=== PATIENT | male | born 1945 | race Caucasian/White ===

== ENCOUNTER → 2017-05-21 | Outpatient (CLI) | payer OTHER ==
[~2017-05-21] MED LIST: ASPI81TA28 PO; ATOR-22; ATOR-26 PO; CHLOTAB77 PO; CMD4; EZET10TA63; LISI-789 PO; METO1TAB69 PO; METO25TA3; MULTIVIT PO; WARF4TAB8 PO
--- NOTE | 2017-05-21 15:04 | DIAGNOSTIC IMAGING REPORT ---
CT OF THE LUMBAR SPINE WITHOUT CONTRAST CT DOSE: 625.94 mGy.cm CLINICAL HISTORY: Lumbar spine stenosis. Lower back pain radiating into left lower extremity. TECHNIQUE: Axial images of the lumbar spine were obtained without IV contrast. Sagittal and coronal reconstructions were viewed. COMPARISON STUDY: None. FINDINGS: For purposes of numbering on this exam, the L5-S1 disc space is assigned to axial image 289 of 356. Alignment of lumbar spine is anatomic. Several Schmorl's nodes are present. There is no acute lumbar spine fracture or suspicious lesion. Paravertebral soft tissues are unremarkable. A 1.5 cm lesion arising from the lower pole the right kidney is suboptimally assessed on this unenhanced exam but likely reflects a cyst as it measures water attenuation. Disc spaces are preserved. There is mild endplate osteophytosis and mild facet arthrosis of the lumbar spine. Central canal and neural foramen are suboptimally assessed by CT technique. However, there is no evidence of significant central canal stenosis. There is a most mild multilevel facet arthrosis. IMPRESSION: 1. No acute lumbar spine fracture or subluxation. 2. Mild multilevel degenerative disc disease and facet arthrosis of the lumbar spine. Suboptimal evaluation of the central canal and neural foramen given CT technique but no significant central canal stenosis. Suspected mild multilevel neural foraminal stenosis. Electronically signed by: Travis Escobedo M.D. 05/21/2017 3:02 PM Dictated Date/Time: 05/21/2017 1:07 PM
== END | disposition home or self-care (01) ==
LOC: C.CTS 12:48
PROVIDERS: ATTEND Orthopaedic Surgery Orthopaedic Surgery of the Spine
DX: M48.06 Spinal stenosis, lumbar region (principal)

== ENCOUNTER → 2017-06-02 | Day surgery (SDC) | payer OTHER ==
[2017-05-28 08:52] VITALS: Ht 157.5 cm; Wt 75.0 kg
[~2017-06-02] VITALS: Ht 157.5 cm; Wt 75.0 kg
[~2017-06-02] MED LIST changes: -ATOR-22; +DEXAMETHASONE SOD INJ 4 MG/ML VIAL ONE; -EZET10TA63; +LIDOCAINE HCL 1% MPF 5 ML VIAL ONE; -METO25TA3
--- NOTE | 2017-06-02 07:01 | History & Physical Bridge - SC ---
H&P Re-Evaluation Bridge Note: I have examined the patient, reviewed the History & Physical and in the interval since the performance of the History & Physical I have noted the following changes of clinical significance: No changes noted
--- NOTE | 2017-06-02 07:08 | History & Physical Bridge Note ---
H&P Re-Evaluation Bridge Note: I have examined the patient, reviewed the History & Physical and in the interval since the performance of the History & Physical I have noted the following changes of clinical significance: No changes noted; Left sided
[2017-06-02 07:22] VITALS: TEMP 36.5
--- NOTE | 2017-06-02 07:26 | [facility] Operative Report ---
Operative Report Operative Date Jun 02, 2017. Pre-Operative Diagnosis spinal stenosis Post-Operative Diagnosis spinal stenosis Procedure(s) Performed epidural steroid injection l5-s1 left Surgeon Dr. Tyler Muñoz Findings Spinal stenosis L5-S1 Complication(s) None Disposition Recovery Room / PACU Indications Spinal stenosis lumbar spine Description of Procedure Patient taken to the minor procedure room here at [facility] surgical raven. Patient placed prone scrubbed prepped draped sterile. Was able to advance the 22-gauge spinal needle to the epidural space at L5-S1 I used a volume acceptance technique. 2 mL of dexamethasone injected to the epidural area favoring the left hand side without incident. There were no complications 0 blood loss patient returned to recovery room satisfactory and stable thank you I attest to the content of the Intraoperative Record and any orders documented therein. Any exceptions are noted below.
--- NOTE | 2017-06-02 07:28 | Discharge Instructions-SurgCtr ---
Discharge Instructions Date of Service Jun 02, 2017. Visit Reason for Visit: Spinal Stenosis Lumbar Discharge Discharge Diagnosis / Problem: same Discharge Goals Goal(s): Improve function Activity Recommendations Activity Limitations: resume your previous activity Lifting Limitations: no more than 10 pounds Anesthesia . Post Anesthesia Instructions: If you have had General Anesthesia or IV Sedation: * Do not drive today. * Resume driving when surgeon permits. * Do not make important decisions or sign legal documents today. * Call surgeon for: 1. Temperature elevations greater than 101 degrees F. 2. Uncontrollable pain. 3. Excessive bleeding. 4. Persistent nausea and vomiting. 5. Medication intolerance (nausea, vomiting or rash). * For nausea and vomiting use only clear liquids such as: tea, soda, bouillon until nausea subsides, then gradually increase diet as tolerated. * If you have any concerns or questions, call your surgeon's office. If physician is unavailable and it is an emergency, call 911 or go to the nearest emergency room. . Instructions / Follow-Up Instructions / Follow-Up Home today take it easy today and resume normal activity as original medications today. Patient to have a follow-up appointment approximate 7-14 days. Thank you Diet Recommendations Home Diet: no limitations Procedures Procedures Performed: epidural steroid injection l5-s1 left Pending Studies Studies pending at discharge: no Medical Emergencies . Who to Call and When: Medical Emergencies: If at any time you feel your situation is an emergency, please call 911 immediately. . Non-Emergent Contact Non-Emergency issues call your: Surgeon . . "Provider Documentation" section prepared by Tyler Muñoz. .
[2017-06-02 07:40] VITALS: BP 102/68; PULSE 61; O2SAT 94
== END | disposition home or self-care (01) ==
LOC: X.SURG 06:03
PROVIDERS: ATTEND Orthopaedic Surgery Orthopaedic Surgery of the Spine
DX: M48.07 Spinal stenosis, lumbosacral region (principal); I10 Essential (primary) hypertension; E78.00 Pure hypercholesterolemia, unspecified; Z95.810 Presence of automatic (implantable) cardiac defibrillator

== ENCOUNTER → 2017-08-12 | Outpatient (CLI) | payer OTHER ==
[~2017-08-12] MED LIST changes: -DEXAMETHASONE SOD INJ 4 MG/ML VIAL ONE; -LIDOCAINE HCL 1% MPF 5 ML VIAL ONE
[2017-08-12 06:47] LABS: PROTHROMBIN TIME (PATIENT) 10.6 SECONDS (9.0-12.0)
--- NOTE | 2017-08-16 14:53 | CODING QUERY NO DIAGNOSIS ---
: 1945 DOS: 08/12/17 TREATMENT RENDERED WITHOUT A DIAGNOSIS To promote full compliance with coding requirements relating to patient care, physician participation is requested in all cases of remote coders uncertainty. Please assist us with providing a diagnosis/symptom for the test(s) below: A diagnosis/symptom was not documented on your Order. A valid diagnosis/symptom is required to bill all insurances. Please remember that we are unable to code a diagnosis of rule out, probable, possible, questionable, or suspected. Tests that require a diagnosis: * PROTHROMBIN TIME PROFILE DIAGNOSIS: Provider Signature: Date: Thank you Dominique Etienne Right Rele[employer] Information Management Once completed, please kindly fax back to [phone] For questions please call [phone]
== END | disposition home or self-care (01) ==
LOC: C.LAB 06:02
PROVIDERS: ATTEND Anesthesiology
DX: Z01.812 Encounter for preprocedural laboratory examination (principal); Z51.81 Encounter for therapeutic drug level monitoring; Z79.899 Other long term (current) drug therapy; I25.10 Atherosclerotic heart disease of native coronary artery without angina pectoris; Z79.82 Long term (current) use of aspirin; M54.5 Low back pain; M51.86 Other intervertebral disc disorders, lumbar region; Z86.73 Personal history of transient ischemic attack (TIA), and cerebral infarction without residual deficits; M46.1 Sacroiliitis, not elsewhere classified; M48.06 Spinal stenosis, lumbar region

== ENCOUNTER → 2017-08-24 | Day surgery (SDC) | payer OTHER ==
[~2017-08-24] VITALS: Ht 157.5 cm; Wt 75.0 kg
[~2017-08-24] MED LIST changes: +ALBUT/IPRATROP 3MG/0.5MG NEB 3 ML VIAL INH STA; -CMD4; +EpHEDrine SULFATE INJ 50 MG/ML AMP ONE; +LIDOCAINE HCL 2% 2 ML VIAL (20MG/ML) ONE; -MULTIVIT PO; +PHENYLEPHRINE 100MCG/ML 5ML SYR ONE; +PROPOFOL IV EMULSION 10 MG/ML 20 ML VIAL IV ONE; +SODIUM CHLORIDE 0.9% 500ML 500 ML IV ONE
[2017-08-24 08:48] VITALS: Ht 157.5 cm; Wt 75.0 kg
--- NOTE | 2017-08-24 08:56 | Endo History and Physical ---
History & Physical Date of Service: Aug 24, 2017. Chief Complaint: h/o polyps Referring Physician: History of Present Illness h/o polyps Past Medical History High Cholesterol, Heart Disease, CVA/TIA Past Surgical History Hx Cardiac Surgery: Yes (CABG X4 VESSELS WITH VALVE REPLACEMENT, HEART CATHS NO STENTS) Hx Internal Defibrillator: Yes () Hx Pacemaker: Yes () Hx Abdominal Surgery: No Hx of Implantable Prosthesis: No Hx Post-Op Nausea and Vomiting: No Hx Cancer Surgery: No Hx Thoracic Surgery: No Hx Orthopedic: Yes (HX BACK INJECTIONS, LT HAND SURGERY S/P TRAUMA) Hx Urinary Tract Surgery: No Family History None Social History Smoking Status: Current Every Day Smoker Hx Substance Use: No Hx Alcohol Use: Yes (2 DRINKS/WEEK) Allergies Coded Allergies: No Known Allergies (Verified , 08/18/17) Current Medications Reported Home Medications Medications Dose Route/Sig Max Daily Dose Days Date Category Dose Instructions Coricidin D Cold/Flu/Sinu (Chlorpheniramine-Phenylephrine) 1 Tab Tab 1 Tab PO UD PRN 08/18/17 Reported Zestril (Lisinopril) 2.5 Mg Tab 1 Tab PO DAILY 08/18/17 Reported PT UNSURE IF TAKES AM OR PM Jantoven (Warfarin Sodium) 4 Mg Tab 4 Mg PO QPM 08/18/17 Reported Aspirin Ec (Aspirin) 81 Mg Tab 81 Mg PO QPM 08/18/17 Reported Toprol-Xl (Metoprolol Succinate) 100 Mg Tabcr 100 Mg PO QAM 05/28/17 Reported Lipitor (Atorvastatin Calcium) 80 Mg Tab 80 Mg PO QAM 05/28/17 Reported Aspirin Ec (Aspirin) 81 Mg Tab 81 Mg PO DAILY 08/20/15 Reported Vital Signs Weight (Kilograms): 75.00 Height (Feet): 5 Height (Inches): 2 Date Time Temp Pulse Resp B/P (MAP) Pulse Ox O2 Delivery O2 Flow Rate FiO2 08/24/17 08:52 36.1 66 18 126/79 (95) 98 Room Air Physical Exam General Appearance: WD/WN, no apparent distress Assessment and Plan colonoscopy today
[2017-08-24 09:17] VITALS: PULSE 61; O2SAT 96
--- NOTE | 2017-08-24 09:47 | GI REPORT ---
Procedure Date: 08/24/2017 9:25 AM Procedure: Colonoscopy Indications: Surveillance: Personal history of adenomatous polyps on last colonoscopy > 5 years ago Medicines: Propofol per Anesthesia Complications: No immediate complications. Estimated blood loss: Minimal. Estimated Blood Loss: Estimated blood loss was minimal. Procedure: Pre-Anesthesia Assessment: - Prior to the procedure, a History and Physical was performed, and patient medications, allergies and sensitivities were reviewed. The patient's tolerance of previous anesthesia was reviewed. - The risks and benefits of the procedure and the sedation options and risks were discussed with the patient. All questions were answered and informed consent was obtained. - Patient identification and proposed procedure were verified prior to the procedure by the physician and the nurse. The procedure was verified in the pre-procedure area in the procedure room. - Mental Status Examination: alert and oriented. Airway Examination: normal oropharyngeal airway and neck mobility. Respiratory Examination: clear to auscultation. CV Examination: normal. Abdominal Examination: bowel sounds present, abdomen soft and non-tender, no masses or organomegaly noted. - ASA Grade Assessment: III - A patient with severe systemic disease. After I obtained informed consent, the scope was passed under direct vision. Throughout the procedure, the patient's blood pressure, pulse, and oxygen saturations were monitored continuously. The On-site loaner was introduced through the anus and advanced to the terminal ileum. The colonoscopy was performed without difficulty. The patient tolerated the procedure well. The quality of the bowel preparation was good. Findings: The perianal and digital rectal examinations were normal. Pertinent negatives include normal sphincter tone and no palpable rectal lesions. The terminal ileum appeared normal. A 4 mm polyp was found in the sigmoid colon. The polyp was sessile. The polyp was removed with a cold snare. Resection and retrieval were complete. Verification of patient identification for the specimen was done by the physician and nurse using the patient's name and date. Estimated blood loss was minimal. The retroflexed view of the distal rectum and anal verge was normal and showed no anal or rectal abnormalities. Impression: - The examined portion of the ileum was normal. - One 4 mm polyp in the sigmoid colon, removed with a cold snare. Resected and retrieved. - The distal rectum and anal verge are normal on retroflexion view. Recommendation: - Await pathology results. - Repeat colonoscopy in 5 years for surveillance. - Return to referring physician as previously scheduled. - Discharge patient to home. Dania Downing D.O. Dania Downing DO 08/24/2017 9:46:53 AM This report has been signed electronically. Note Initiated On: 08/24/2017 9:25 AM I attest to the content of the Intraoperative Record and orders documented therein, exceptions below
--- NOTE | 2017-08-24 09:56 | Discharge Instructions ---
Endoscopy Patient Instructions Date / Procedure(s) Performed Aug 24, 2017. Colonoscopy Allergy Information Coded Allergies: No Known Allergies (Verified , 08/18/17) Discharge Date / Findings Aug 24, 2017. small polyp Medication Instructions Restart Stopped Medication(s): Ok to resume all home medications as above Provider Instructions Activity Restrictions - No exercising or heavy lifting for 24 hours. - Do not drink alcohol the day of the procedure. - Do not drive a car or operate machinery until the day after the procedure. - Do not make any important decisions or sign important papers in 24 hours after the procedure. Following Day: - Return to full activity which may include returning to work/school. Diet Start your diet with liquids and light foods (jello, soup, juice, toast). Then eat your usual diet if not nauseated. Treatment For Common After Affects For mild abdominal pain, bloating, or excessive gas: - Rest - Eat lightly - Lie on right side Follow-Up Information Follow-up with DR. PATRICIA NIXON as scheduled Anesthesia Information What You Should Know You have had a procedure that required some medicine to reduce anxiety and discomfort. This treatment is called moderate sedation. After receiving the treatment, you may be sleepy, but you will be able to breathe on your own. The effects of the treatment may last for several hours. Follow these instructions along with Activity/Diet recommendations noted above: * Do NOT do anything where dizziness or clumsiness would be dangerous. * Rest quietly at home today, then you can be up and about tomorrow. * Have a responsible person stay with you the rest of today. * You may have had an I.V. today. If so, you may take the dressing off later today. Recommendations Call your doctor if: * Trouble breathing * Continuous vomiting for more than 24 hours * Temperature above 101 degrees * Severe abdominal pain or bloating * Pain not relieved by pain medicine ordered * There is increased drainage or redness from any incision * A large amount of rectal bleeding greater than 2-3 tablespoons. (If you had a polyp/s removed or have hemorrhoids, a small amount of blood - from the rectum is to be expected.) * You have any unanswered questions or concerns. IN THE EVENT OF A SERIOUS EMERGENCY, GO TO THE NEAREST EMERGENCY ROOM Your discharge instructions were prepared by provider Dania Downing. Patient Instructions Signature Page Antoine Nolasco Patient (or Guardian) Signature/Date: I have read and understand the instructions given to me by my caregivers. Caregiver/RN/Doctor Signature/Date: The above-named patient and/or guardian has received patient instructions on this date. + Original Patient Signature Page (only) stays with chart. Please make copy for patient.
--- NOTE | 2017-08-24 10:12 | Anesthesiology Progress Note ---
Anesthesia Post Op Note Date & Time Aug 24, 2017 at 10:11 Vital Signs Pain Intensity: 0 Vital Signs Past 12 Hours Date Time Temp Pulse Resp B/P (MAP) Pulse Ox O2 Delivery O2 Flow Rate FiO2 08/24/17 10:04 69 18 118/79 (92) 96 Room Air 08/24/17 09:49 36.4 63 18 115/71 (86) 98 Mask 4 08/24/17 09:17 61 16 96 Room Air 08/24/17 08:52 36.1 66 18 126/79 (95) 98 Room Air Notes Mental Status: alert / awake / arousable, participated in evaluation Pt Amnestic to Procedure: Yes Nausea / Vomiting: adequately controlled Pain: adequately controlled Airway Patency, RR, SpO2: stable & adequate BP & HR: stable & adequate Hydration State: stable & adequate Anesthetic Complications: no major complications apparent Pt awake, doing well, VSS. Advised pt and about smoking cessation and seeking care for his chronic respiratory issues.
[2017-08-24 10:19] VITALS: BP 135/76; PULSE 66; O2SAT 97
== END | disposition home or self-care (01) ==
LOC: C.GI 08:27
PROVIDERS: ATTEND Internal Medicine
DX: Z12.11 Encounter for screening for malignant neoplasm of colon (principal); D12.5 Benign neoplasm of sigmoid colon; Z86.010 Personal history of colon polyps; E78.00 Pure hypercholesterolemia, unspecified; Z86.73 Personal history of transient ischemic attack (TIA), and cerebral infarction without residual deficits; F17.200 Nicotine dependence, unspecified, uncomplicated; Z79.82 Long term (current) use of aspirin; I25.2 Old myocardial infarction; I10 Essential (primary) hypertension; E78.5 Hyperlipidemia, unspecified; Z95.0 Presence of cardiac pacemaker; Z85.820 Personal history of malignant melanoma of skin

== ENCOUNTER → 2017-08-25 | Outpatient (CLI) | payer OTHER ==
[~2017-08-25] MED LIST changes: -ALBUT/IPRATROP 3MG/0.5MG NEB 3 ML VIAL INH STA; -EpHEDrine SULFATE INJ 50 MG/ML AMP ONE; -LIDOCAINE HCL 2% 2 ML VIAL (20MG/ML) ONE; -PHENYLEPHRINE 100MCG/ML 5ML SYR ONE; -PROPOFOL IV EMULSION 10 MG/ML 20 ML VIAL IV ONE; -SODIUM CHLORIDE 0.9% 500ML 500 ML IV ONE
--- NOTE | 2017-08-25 10:01 | DIAGNOSTIC IMAGING REPORT ---
LEG LENGTH STUDY (WHOLE LEG) CLINICAL HISTORY: Leg length discrepancy. COMPARISON STUDY: No previous studies for comparison. FINDINGS: Right femur measures 45.3 cm and left femur measures 44.4 cm. The right tibia measures 35.6 cm and the left measures 35.8 cm. IMPRESSION: Right femur length of 45.3 cm and right tibia length of 35.6 cm for a total right leg length of 80.9 cm. Left femur length of 44.4 cm and left tibia length of 35.8 cm for a total left leg length of 80.2 cm. Electronically signed by: Travis Escobedo M.D. 08/25/2017 10:00 AM Dictated Date/Time: 08/25/2017 9:55 AM
== END | disposition home or self-care (01) ==
LOC: C.RADBC 09:06
PROVIDERS: ATTEND Physician Assistant
DX: M21.752 Unequal limb length (acquired), left femur (principal); M21.761 Unequal limb length (acquired), right tibia

== ENCOUNTER → 2017-10-25 | Outpatient (CLI) | payer OTHER ==
[~2017-10-25] MED LIST changes: +METO100T44 PO; -METO1TAB69 PO
[2017-10-25 07:08] LABS: PROTHROMBIN TIME (PATIENT) 10.4 SECONDS (9.0-12.0)
== END | disposition home or self-care (01) ==
LOC: C.LAB 06:40
PROVIDERS: ATTEND Physician Assistant
DX: Z01.818 Encounter for other preprocedural examination (principal)

== ENCOUNTER → 2017-11-09 | Outpatient (CLI) | payer OTHER | END | disposition home or self-care (01) | LOC: C.LAB 08:54 | PROVIDERS: ATTEND Physician Assistant | DX: Z01.812 Encounter for preprocedural laboratory examination (principal) ==

== ENCOUNTER 2017-12-08 13:10 | Emergency (ER) | payer OTHER ==
[~2017-12-08] VITALS: Ht 157.5 cm; Wt 75.0 kg
[2017-12-08 13:18] VITALS: TEMP 36.5; Ht 157.5 cm; Wt 75.0 kg
--- NOTE | 2017-12-08 14:11 | DIAGNOSTIC IMAGING REPORT ---
THORACIC SPINE 3 VIEWS ROUTINE CLINICAL HISTORY: Low back pain. Trauma. COMPARISON STUDY: 10/03/2014 FINDINGS: There are postsurgical changes of a midline sternotomy. There is a left subclavian pacer/defibrillator present. Since the prior study, the patient's T9 compression fracture has worsened now demonstrating 50% loss in height.. The bones appear osteopenic. IMPRESSION: Progressive T9 compression fracture which now demonstrates 50% loss in height Electronically signed by: Torey Jain M.D. 12/08/2017 2:10 PM Dictated Date/Time: 12/08/2017 2:08 PM
--- NOTE | 2017-12-08 14:24 | DIAGNOSTIC IMAGING REPORT ---
L RIBS UNILATERAL WITH PA CHEST HISTORY: 71 years-old Male same acute chest pain status post fall. COMPARISON: Chest radiographs 10/03/2014 TECHNIQUE: PA view of the chest with 4 views of the left ribs. FINDINGS: Prior median sternotomy. Single lead left pectoral pacer/AICD is noted. Atherosclerosis of the aorta. There is no pneumothorax, pleural effusion, focal airspace consolidation or overt pulmonary edema. Degenerative changes are seen within the shoulders. Mild cortical irregularity involves the lateral aspect of the left eighth, ninth and 10th ribs which appears new from prior study. No displaced rib fractures identified. IMPRESSION: 1. No acute cardiopulmonary process. 2. Mild cortical irregularity involving the posterior lateral aspects of the left eighth, ninth and 10th ribs suggest acute nondisplaced fractures. Correlate with point tenderness. The above report was generated using voice recognition software. It may contain grammatical, syntax or spelling errors. Electronically signed by: Otilio Wu M.D. 12/08/2017 2:22 PM Dictated Date/Time: 12/08/2017 2:08 PM
[2017-12-08] MEDS ORDERED: HYDR-5688 PO (14:37)
[2017-12-08 14:38] VITALS: BP 126/78; PULSE 66; O2SAT 96
--- NOTE | 2017-12-09 16:40 | EMERGENCY ROOM VISIT NOTE ---
ED Visit Note First contact with patient: 13:33 Chief Complaint: I fell yesterday and hurt my shoulder and ribs. History of Present Illness: Mr. Nolasco is a 71-year-old white male who ambulates into the ED complaining of midthoracic back pain in the area of T5-T7 and left lateral rib pain after a fall. Patient reports he was walking outside yesterday to bring the male in, slipped and fell on the ice onto his thoracic back and lateral ribs. He reports before the fall he was not experiencing any lightheaded or dizziness, the time of the fall he did not strike his head or have a loss of consciousness and since the all he denies any signs of head injury. Currently he is complaining of an achy pain in the mid thoracic spine area over the bony spinous processes of T5-T7. He rates this discomfort 1/10. His pain is nonradiating. His pain worsens with palpation. He has not identified any alleviating factors related to the pain. He has not taken any medication for pain prior to arrival at the hospital. Additionally he is complaining of lateral rib pain over the left ribs 6 through 10. He describes this more of a sharp sensation but continues to rate his discomfort 1/10. His pain worsens with palpation and deep inspiration. He has not identified any alleviating factors related to the pain. Once again he has not taken any medication for pain prior to arrival at the hospital. Associated with his pain he reports intermittently he has a cough which increases his pain but is nonproductive. He denies headache, dizziness, lightheadedness, abnormal neurological symptoms, neck pain, lower back pain, shortness of breath, cough, wheezing, abdominal pain , nausea, vomiting, upper and lower extremity pain, upper and lower extremity weakness/numbness/tingling. Review of Systems: As noted above in history of present illness. All body systems were reviewed and found to be negative as noted above. Past Medical History: Coronary artery disease, thoracic vertebral fracture, previous shoulder dislocation, status post CABG and pacemaker implantation. Current Medications: Medications Dose Route/Sig Max Daily Dose Days Date Category Dose Instructions Zestril (Lisinopril) 2.5 Mg Tab 1 Tab PO DAILY 08/18/17 Reported PT UNSURE IF TAKES AM OR PM Jantoven (Warfarin Sodium) 4 Mg Tab 4 Mg PO QPM 08/18/17 Reported Aspirin Ec (Aspirin) 81 Mg Tab 81 Mg PO QPM 08/18/17 Reported Toprol-Xl (Metoprolol Succinate) 100 Mg Tabcr 100 Mg PO QAM 05/28/17 Reported Lipitor (Atorvastatin Calcium) 80 Mg Tab 80 Mg PO QAM 05/28/17 Reported Allergies to Medications: Patient denies. Social History: Patient is currently retired; he feels safe in his home environment; he admits to tobacco and alcohol use. Physical Examination: Vital Signs: Date Time Temp Pulse Resp B/P (MAP) Pulse Ox O2 Delivery O2 Flow Rate FiO2 12/08/17 14:38 66 18 126/78 96 12/08/17 13:18 36.5 65 18 97/66 93 Room Air GENERAL: 71-year-old male in mild distress due to pain, nontoxic-appearing, afebrile and hemodynamically stable. NEUROLOGICAL: Awake, alert and oriented to person, place and time. Answering questions appropriately and following commands. Normal gait. Good hand eye coordination. Cranial nerves II through XII grossly intact. Romberg test negative. Pronator drift test negative. Good short-term and long-term recall. SKIN: Warm, dry and pink. No soft tissue trauma noted. HEENT: Atraumatic and normocephalic. Skull: No bony deformity, bony tenderness , swelling or ecchymosis. No raccoon's eyes or garvin signs. No drainage in the ears of the nostril; no hemotympanum. Face: No bony tenderness, swelling or ecchymosis. PERRLA. EOMI without nystagmus. No malocclusion. Airway patent. Speech is normal and clear. No intraoral trauma. Trachea midline. No jugular venous distention. BACK: No tenderness over the bony cervical and lumbar spine. Full range of motion of the cervical spine. Mild tenderness in the T5 through T7 area over the spinous processes. I do not appreciate any bony deformity, step-offs, swelling or ecchymosis. No tenderness throughout the paraspinous muscles. No CVA tenderness. THORAX: Lungs sounds are clear to auscultation and equal bilaterally with symmetrical chest wall. No wheezing, rales or rhonchi. Moderate tenderness throughout the lateral ribs on the left starting at rib 5 through 10. I do not appreciate any bony deformity, bony crepitus or subcutaneous air. There is no bruising or ecchymosis in this area. ABDOMEN: Flat, soft and nontender. Positive bowel sounds in all quadrants. No guarding, rigidity or organomegaly. EXTREMITIES: Moves all extremities well on command and with purpose. All distal neurovascular statuses are intact and equal bilaterally. ED Course: Patient is assessed as noted above. Patient medication list was reviewed. Patient was offered pain medication and refused. PA Chest with Rib Series: Were read by myself and the radiologist showing no acute infiltrates, effusions or pneumothorax. Normal heart silhouette and bony anatomy. There is a pacer/ACD noted in the chest. Radiologist also notes prior medial sternotomy, atherosclerosis of the aorta and degenerative changes of the shoulders. On his rib x-rays it is noted that there is cortical irregularities of the lateral aspect of the eighth, ninth and 10th rib suggestive of nondisplaced rib fractures. Thoracic Spine X-Rays: Was read by myself and the radiologist showing similar symptoms as those noted above and a T9 compression fracture that now demonstrates 50% loss in height which was slightly increased from his previous x -rays. Patient's case was reviewed with Dr. Linares; we agreed on diagnostic approach , treatment, disposition and plan. Patient was educated about today's findings and instructed on his treatment plan ; he verbalizes understanding and agreement with this plan. Clinical Impression: Fall. Left sided rib fractures. Worsening compression fracture of T9. Disposition: Patient discharged home in stable condition; prior to departure he was reassessed and subjectively reported that he was pain-free. Plan: Patient was placed on a sliding pain medication scale of acetaminophen and [place] ; he was given appropriate narcotic precautions and his name was checked on the state database and no red flags were noted. Additional comfort measures including ice and rest were discussed with the patient. Patient was issued an incentive spirometer and instructed on at use. Patient was encouraged to follow-up with his PCP for reevaluation in 3-4 days. Patient is encouraged return ED for worsening/uncontrolled pain, shortness of breath, coughing up blood, fevers or any new/concerning symptoms.
== END 2017-12-08 14:38 | disposition home or self-care (01) ==
LOC: C.EDB 13:11 → C.EDD 14:38
DX: S22.42XA Multiple fractures of ribs, left side, initial encounter for closed fracture (principal); S22.079A Unspecified fracture of T9-T10 vertebra, initial encounter for closed fracture; W00.0XXA Fall on same level due to ice and snow, initial encounter; Y93.89 Activity, other specified; Y99.8 Other external cause status; I25.10 Atherosclerotic heart disease of native coronary artery without angina pectoris; Z72.0 Tobacco use; Z95.1 Presence of aortocoronary bypass graft; Z95.0 Presence of cardiac pacemaker; Z79.01 Long term (current) use of anticoagulants; Z79.82 Long term (current) use of aspirin

== ENCOUNTER → 2018-03-07 | Outpatient (CLI) | payer OTHER ==
[~2018-03-07] MED LIST changes: -CHLOTAB77 PO; +HYDR-5688 PO
== END | disposition home or self-care (01) ==
LOC: C.LAB 07:59
PROVIDERS: ATTEND Anesthesiology
DX: Z98.61 Coronary angioplasty status (principal)

== ENCOUNTER → 2018-04-08 | Outpatient (CLI) | payer OTHER ==
--- NOTE | 2018-04-08 08:31 | DIAGNOSTIC IMAGING REPORT ---
LUMBAR SPINE WITHOUT HISTORY: 72 years-old Male SACROILIITIS, CHRONIC LUMBAGO chronic low back pain. Preoperative exam. COMPARISON: Lumbar spine CT 05/21/2017 TECHNIQUE: Multiple axial CT images of the lumbar spine were obtained without the use of IV or intrathecal contrast. Coronal and sagittal reformatted images were obtained from the axial data set and were submitted for review. A dose lowering technique was used consistent with the principals of ALA. FINDINGS: The bones appear mildly demineralized without acute fracture or subluxation identified. 10 degrees levoscoliosis measured from L1-L5. Mild degenerative changes about the SI joints. No sacral insufficiency fracture. Mild bilateral spondylitic spurring with mild intervertebral disc space narrowing at T12-L1 and L1-L2. Chondrocalcinosis about the disc spaces noted at several levels. There is moderate to severe left-sided facet arthrosis at L5-S1 with mild to moderate facet arthrosis seen at several levels. Central canal and neuroforamina are suboptimally assessed by CT. There is however a small circumferential annular disc bulge at L1-L2 which along with ligamentum flavum thickening appears to cause mild left-sided foraminal narrowing. There is flattening of the ventral thecal sac without significant central canal stenosis. No high-grade central canal or foraminal narrowing is seen at any level. Small posterior disc bulge at L5-S1 without significant central canal or foraminal narrowing. Moderate atherosclerosis of the aorta without aneurysm. No adenopathy. Low attenuating 1.5 cm exophytic lesion of the inferior pole right kidney suggests renal cyst. Soft tissues are unremarkable. IMPRESSION: 1. No acute fracture or subluxation. 2. 10 degrees levoscoliosis of the lumbar spine with severe left-sided facet arthrosis at L5-S1 and mild to moderate facet arthropathy seen at several levels. Mild spondylitic spurring with multilevel calcification of the annulus fibrosis. No significant central canal or foraminal narrowing identified. The above report was generated using voice recognition software. It may contain grammatical, syntax or spelling errors. Electronically signed by: Otilio Wu M.D. 04/08/2018 8:29 AM Dictated Date/Time: 04/08/2018 8:20 AM
== END | disposition home or self-care (01) ==
LOC: C.CTS 08:02
PROVIDERS: ATTEND Physician Assistant Medical
DX: M46.1 Sacroiliitis, not elsewhere classified (principal); M54.5 Low back pain

== ENCOUNTER 2023-03-03 07:45 | Inpatient (IN) ==
[2023-03-03] MEDS ORDERED: ASPIRIN CHEW 324 MG PO STA (07:52)
--- NOTE | 2023-03-03 07:56 | Emergency Department Note ---
Impression & Plan Chest pain, Abnormal EKG ED Provider Note NAME: SEAN TYLER AGE: 77 SEX: M : 1945 ARRIVES VIA: Walk-In INFORMANT: Patient, ED PROVIDER(S): Claudio Holder DO CHIEF COMPLAINT: Chest pain HPI: The patient is a 77-year-old male who presented to the emergency department for an evaluation of chest pain. The patient describes anterior and left-sided chest pain that began over the last 24 hours. He states he has had similar episodes over the last few days but it did not remain constant. This morning he decided to take his nitroglycerin. He has never had to take nitroglycerin before. He states that it did improve his pain somewhat. He is also noticed a cough as well as some difficulty breathing. He notices difficulty breathing with lying flat. He states he has a history of tobacco use. He also has a history of CABG. He states he had a stress test a few months ago that was "normal". He denies having any fever. He denies having any hemoptysis. He has had no black or bloody bowel movements. ROS: See above HPI for pertinent positives & negatives. A total of 10 systems reviewed and were otherwise negative. PAST MEDICAL HISTORY: See Below PAST SURGICAL HISTORY: See Below FAMILY HISTORY: See Below SOCIAL HISTORY: See Below HOME MEDICATIONS: See Below ALLERGIES: See Below VITALS: See Below PHYSICAL EXAMINATION: GENERAL: Patient is awake and alert. He does appear to be uncomfortable. EYES: The conjunctivae are clear. The pupils are round and reactive. EARS, NOSE, MOUTH AND THROAT: The nose is without any evidence of any deformity. Mucous membranes are moist. Tongue is midline. NECK: The neck is nontender and supple. RESPIRATORY: Diminished breath sounds are noted at both bases. There are rales at both bases. CARDIOVASCULAR: Regular rate and rhythm noted there no murmurs rubs or gallops normal S1 normal S2. GASTROINTESTINAL: The abdomen is soft. Abdomen is nontender. MUSCULOSKELETAL/EXTREMITIES: There is no evidence of gross deformity full range of motion is noted in the hips and shoulders. SKIN: Skin is warm and dry. There is no significant pedal edema. NEUROLOGIC: Patient is awake alert and oriented x3. MEDICAL DECISION MAKING: The patient is a 77-year-old male who presented to the emergency department for an evaluation of chest pain. The patient does have a history of coronary artery disease. His most recent stress test did reveal some abnormalities that could represent ischemic heart disease. The patient took nitroglycerin this morning. This is the first time he has taken nitroglycerin. The patient states he did have some improvement of his symptoms after these medications. I discussed the patient's laboratory and radiographic studies with him. I discussed the limitations of the emergency department work-up for chest pain with him. Given the patient's previous history as well as findings today I discussed his condition with the on-call [facility] supervisor sewer system. They have agreed to evaluate the patient in the emergency department. I also discussed this case with the on-call [facility] hospitalist. They have agreed to evaluate the patient in the emergency department for further management and disposition. Triage Nursing notes reviewed. Prior medical records reviewed Vital Signs: reviewed and remarkable for no significant abnormalities Differential diagnosis: Cardiac ischemia, aortic dissection, pulmonary embolism, pneumothorax, pneumonia, pericarditis, myocarditis, esophageal rupture, GERD, cholecystitis, pancreatitis, musculoskeletal, as well as other pathologies. ER treatment provided: See below Diagnostics interpreted by me: ECG: EKG was obtained in the emergency department. My interpretation is sinus bradycardia at 59 bpm. There were no PVCs noted. Poor R wave progression was noted. High lateral ST depressions with T wave inversions were noted. There were inferior Q waves. This was compared to a tracing from August 03, 2022. The lateral ST depressions appeared increased compared to today's tracing. Cardiac Monitoring: An order was placed for continuous cardiac monitoring. The monitor shows a rate of 54 bpm with sinus bradycardia. Laboratory studies: As stated above and show below. Imaging studies: See below. Radiographic imaging was reviewed by myself Consultation(s): I discussed this case with Dr. Stafford who is on-call for cardiology. I discussed this case with Beckie who is on-call for the [facility] hospitalist group. Past Med/Surg History Medical History Amputation of middle finger ASCVD (arteriosclerotic cardiovascular disease) Bicuspid aortic valve CVA (cerebral vascular accident) GERD (gastroesophageal reflux disease) Heart attack High cholesterol Left knee pain Mitral regurgitation Surgical History History of tonsillectomy S/P CABG x 5 S/P fusion of sacroiliac joint S/P TAVR (transcatheter aortic valve replacement) Social History Smoking Status: Current every day smoker Hx Alcohol Use: No Hx Substance Use: No Preferred Language: Slovak Communication Ability: Effective Visual Impairment: No Limitations Hearing Ability: Normal 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 Beliefs That Will Affect Care: None marital status: Current Living Situation: Spouse current occupational status: retired Allergies Allergies Allergy/AdvReac Type Severity Reaction Status Date / Time No Known Allergies Allergy Verified 02/23/22 11:01 Home Meds Home Medications Medication Instructions Recorded Confirmed aspirin 81 mg tablet,delayed 81 mg PO PM 02/23/22 03/03/23 release lisinopril 2.5 mg tablet 2.5 mg PO DAILY 02/23/22 03/03/23 metoprolol succinate 50 mg 50 mg PO DAILY 02/23/22 03/03/23 tablet,extended release 24 hr (Toprol XL) nitroglycerin 0.4 mg sublingual 0.4 mg sublingual Q5M PRN Chest 02/23/22 03/03/23 tablet Pain warfarin 4 mg tablet 4 mg PO 3XWK 02/23/22 03/03/23 amiodarone 200 mg tablet 200 mg PO DAILY 03/03/23 03/03/23 atorvastatin 40 mg tablet 40 mg PO DAILY 03/03/23 03/03/23 warfarin 4 mg tablet 2 mg PO 4XWK 03/03/23 03/03/23 Results & Data (ED) Vital Signs Vital Signs - 24 hr 03/03/23 07:45 03/03/23 07:45 03/03/23 07:50 Temperature 36.6 C Temperature Source Oral Pulse Rate 60 57 L Pulse Rate from SpO2 Sensor Respiratory Rate 16 16 22 Blood Pressure 147/69 H Blood Pressure [Left Arm] 155/85 H Blood Pressure Mean 95 Blood Pressure Mean [Left Arm] 108 Pulse Oximetry 96 94 Oxygen Delivery Method Room Air Sepsis Recent Fever Within 48 Hours No Sepsis New/Unexplained Change in Mental Status N/A Sepsis Action Taken by Nursing No Action Required 03/03/23 07:50 03/03/23 08:01 03/03/23 08:03 Temperature Temperature Source Pulse Rate 57 L 57 L 57 L Pulse Rate from SpO2 Sensor Respiratory Rate 22 22 Blood Pressure Blood Pressure [Left Arm] Blood Pressure Mean Blood Pressure Mean [Left Arm] Pulse Oximetry 94 94 Oxygen Delivery Method Room Air Room Air Sepsis Recent Fever Within 48 Hours Sepsis New/Unexplained Change in Mental Status Sepsis Action Taken by Nursing 03/03/23 07:58 03/03/23 08:00 03/03/23 08:00 Temperature Temperature Source Pulse Rate 57 L 57 L Pulse Rate from SpO2 Sensor 57 L 57 L Respiratory Rate 17 17 Blood Pressure 147/69 H Blood Pressure [Left Arm] Blood Pressure Mean 95 Blood Pressure Mean [Left Arm] Pulse Oximetry 94 94 Oxygen Delivery Method Sepsis Recent Fever Within 48 Hours Sepsis New/Unexplained Change in Mental Status Sepsis Action Taken by Nursing 03/03/23 08:30 03/03/23 08:30 03/03/23 09:00 Temperature Temperature Source Pulse Rate 54 L 54 L Pulse Rate from SpO2 Sensor 54 L 54 L Respiratory Rate 16 20 Blood Pressure 126/68 Blood Pressure [Left Arm] Blood Pressure Mean 87 Blood Pressure Mean [Left Arm] Pulse Oximetry 93 93 Oxygen Delivery Method Sepsis Recent Fever Within 48 Hours Sepsis New/Unexplained Change in Mental Status Sepsis Action Taken by Nursing 03/03/23 09:01 03/03/23 09:01 Temperature Temperature Source Pulse Rate Pulse Rate from SpO2 Sensor 55 L Respiratory Rate 19 Blood Pressure 140/65 Blood Pressure [Left Arm] Blood Pressure Mean 90 Blood Pressure Mean [Left Arm] Pulse Oximetry 92 Oxygen Delivery Method Sepsis Recent Fever Within 48 Hours Sepsis New/Unexplained Change in Mental Status Sepsis Action Taken by Correction Medications Current Medication List: was personally reviewed by me Laboratory Data Attestation: I reviewed the patient's lab results. 03/03/23 07:58 03/03/23 07:58 Lab Results 03/03/23 03/03/23 03/03/23 Range/Units 07:58 07:58 07:58 WBC 9.76 (4.8-10.8) K/ul RBC 5.40 (4.70-6.10) M/uL Hgb 16.9 (14.0-18.0) g/dl Hct 49.3 (42.0-52.0) % MCV 91.3 (80.0-100.0) fL MCH 31.3 (25.0-34.0) pg MCHC 34.3 (32.0-36.0) g/dL RDW Std Deviation 50.9 H (36.4-46.3) fL RDW Coeff of Nick 15.3 H (11.5-14.5) % Plt Count 225 (130-400) K/uL MPV 11.0 (9.4-12.4) fL Immature Gran % (Auto) 0.8 % Neut % (Auto) 59.6 % Lymph % (Auto) 21.4 % Mills % (Auto) 13.1 % Eos % (Auto) 4.0 % Baso % (Auto) 1.1 % Neut # (Auto) 5.81 (1.40-6.50) K/uL Lymph # (Auto) 2.09 (1.2-3.4) K/uL Mills # (Auto) 1.28 H (0.11-0.59) K/uL Eos # (Auto) 0.39 (0-0.50) K/uL Baso # (Auto) 0.11 (0-0.2) K/uL Immature Gran # (Auto) 0.08 (0.01-0.20) K/uL PT 26.1 H (9.0-12.0) Seconds INR 2.6 H (0.9-1.1) APTT 39.6 H (21.0-31.0) Seconds PTT Ratio 1.4 Sodium 140 (136-145) mmol/L Potassium 4.0 (3.5-5.1) mmol/L Chloride 105 (98-107) mmol/L Carbon Dioxide 29 (21-32) mmol/L Anion Gap 6 (3-11) BUN 12 (6-23) mg/dl Creatinine 0.89 (0.6-1.4) mg/dl Est Cr Clr Drug Dosing 62.3 ml/min Est GFR ( Amer) 96.3 ml/min Est GFR (Non-Af Amer) 83.1 ml/min BUN/Creatinine Ratio 13.5 (10-20) Glucose 83 (70-99(Fasting)) mg/dl Calcium 9.1 (8.6-10.3) mg/dl Total Bilirubin 0.5 (0.2-1.0) mg/dl AST 31 (13-39) U/L ALT 42 (7-52) U/L Alkaline Phosphatase 101 (34-104) U/L Troponin I High Sens 9.1 (0-20) pg/ml B-Natriuretic Peptide (0-100) pg/ml Total Protein 7.2 (6.0-8.3) gm/dl Albumin 4.4 (3.4-5.0) gm/dl Globulin 2.8 (2.5-4.0) gm/dl Albumin/Globulin Ratio 1.6 (0.9-2) Lipase 31 (11-82) U/L SARS-CoV-2, RNA, NAAT (NEGATIVE) 03/03/23 03/03/23 Range/Units 07:58 07:58 WBC (4.8-10.8) K/ul RBC (4.70-6.10) M/uL Hgb (14.0-18.0) g/dl Hct (42.0-52.0) % MCV (80.0-100.0) fL MCH (25.0-34.0) pg MCHC (32.0-36.0) g/dL RDW Std Deviation (36.4-46.3) fL RDW Coeff of Nick (11.5-14.5) % Plt Count (130-400) K/uL MPV (9.4-12.4) fL Immature Gran % (Auto) % Neut % (Auto) % Lymph % (Auto) % Mills % (Auto) % Eos % (Auto) % Baso % (Auto) % Neut # (Auto) (1.40-6.50) K/uL Lymph # (Auto) (1.2-3.4) K/uL Mills # (Auto) (0.11-0.59) K/uL Eos # (Auto) (0-0.50) K/uL Baso # (Auto) (0-0.2) K/uL Immature Gran # (Auto) (0.01-0.20) K/uL PT (9.0-12.0) Seconds INR (0.9-1.1) APTT (21.0-31.0) Seconds PTT Ratio Sodium (136-145) mmol/L Potassium (3.5-5.1) mmol/L Chloride (98-107) mmol/L Carbon Dioxide (21-32) mmol/L Anion Gap (3-11) BUN (6-23) mg/dl Creatinine (0.6-1.4) mg/dl Est Cr Clr Drug Dosing ml/min Est GFR ( Amer) ml/min Est GFR (Non-Af Amer) ml/min BUN/Creatinine Ratio (10-20) Glucose (70-99(Fasting)) mg/dl Calcium (8.6-10.3) mg/dl Total Bilirubin (0.2-1.0) mg/dl AST (13-39) U/L ALT (7-52) U/L Alkaline Phosphatase (34-104) U/L Troponin I High Sens (0-20) pg/ml B-Natriuretic Peptide 120 H (0-100) pg/ml Total Protein (6.0-8.3) gm/dl Albumin (3.4-5.0) gm/dl Globulin (2.5-4.0) gm/dl Albumin/Globulin Ratio (0.9-2) Lipase (11-82) U/L SARS-CoV-2, RNA, NAAT NEGATIVE (NEGATIVE) Administered Medications Discontinued Medications Aspirin (Aspirin Chew 324 Mg) 324 mg PO NOW STA Stop: 03/03/23 07:53 Last Admin: 03/03/23 08:09 Dose: 324 mg Documented By: DEE Imaging Data Attestation: I personally reviewed and interpreted this imaging study as follows: My Impression: 1 view chest x-rays obtained in the emergency department. My interpretation is cardiomegaly, final report below. Radiologist's Impression: Chest X-Ray 03/03/23 07:52 XR chest 1V portable HISTORY: 77 years-old Male Chest pain, nonspecific acute left-sided chest pain COMPARISON: 12/08/2017 TECHNIQUE: AP view of the chest FINDINGS: Cardiac silhouette is enlarged. Prior median sternotomy with left subclavian pacer/AICD. Cardiac valvular prosthesis. Mild chronic interstitial coarsening of the lung bases. No pneumothorax, pleural effusion, airspace consolidation or pulmonary edema. Degenerative changes of the shoulders and spine. Chronic lateral left rib fractures. IMPRESSION: Cardiomegaly without acute process. ACT 112: Negative or not required by law. The above report was generated using voice recognition software. It may contain grammatical, syntax or spelling errors. Electronically signed by: Andrew Wu M.D. 03/03/2023 8:22 AM Discharge Plan Visit Data Chief Complaint: Chest Pain Stated Complaint: CHEST PAIN ED Provider: Claudio Holder Discharge Problem: Chest pain, Abnormal EKG Patient Disposition: Being Evaluated by Hospitalist Forms Stand Alone Forms: My [facility] Prescriptions Prescriptions: No Action aspirin 81 mg tablet,delayed release (DR/EC) 81 mg PO PM lisinopril 2.5 mg tablet 2.5 mg PO DAILY metoprolol succinate [Toprol XL] 50 mg tablet extended release 24 hr 50 mg PO DAILY warfarin 4 mg tablet 4 mg PO 3XWK Rx Instructions: Take 1 tablet (4 mg) by mouth every Wednesday, Wednesday, and Wednesday. Take (1/2 tab) 2 mg all other days; Wednesday, , Wednesday, and Wednesday. nitroglycerin 0.4 mg tablet, sublingual 0.4 mg sublingual Q5M PRN (Reason: Chest Pain) Rx Instructions: do not exceed 3 doses per episode atorvastatin 40 mg tablet 40 mg PO DAILY amiodarone 200 mg tablet 200 mg PO DAILY warfarin 4 mg tablet 2 mg PO 4XWK Rx Instructions: Take (1/2 tab) 2 mg four times weekly on Wednesday, , Wednesday, and Wednesday. (Take 1 tablet (4 mg) by mouth alll other days;Wednesday, Wednesday, and Wednesday.) Referrals Referrals: Manuel Pearson MD [Outside Practitioners] -
--- NOTE | 2023-03-03 08:23 | XRay Report ---
XR chest 1V portable HISTORY: 77 years-old Male Chest pain, nonspecific acute left-sided chest pain COMPARISON: 12/08/2017 TECHNIQUE: AP view of the chest FINDINGS: Cardiac silhouette is enlarged. Prior median sternotomy with left subclavian pacer/AICD. Cardiac valv ular prosthesis. Mild chronic interstitial coarsening of the lung bases. No pneumothorax, pleural eff usion, airspace consolidation or pulmonary edema. Degenerative changes of the shoulders and spine. Ch ronic lateral left rib fractures. IMPRESSION: Cardiomegaly without acute process. ACT 112: Negative or not required by law. The above report was generated using voice recognition software. It may contain grammatical, syntax o r spelling errors. Electronically signed by: Andrew Wu M.D. 03/03/2023 8:22 AM
[2023-03-03 08:32] LABS: Basophils # (auto) 0.11 K/uL (0-0.2); Basophils % (auto) 1.1 %; Eosinophils # (auto) 0.39 K/uL (0-0.50); Hematocrit (blood only) 49.3 % (42.0-52.0); Hemoglobin 16.9 g/dl (14.0-18.0); Immature Granulocytes # (auto) 0.08 K/uL (0.01-0.20); Immature Granulocytes % (auto) 0.8 %; Lymphocytes # (auto) 2.09 K/uL (1.2-3.4); Lymphocytes % (auto) 21.4 %; Mean Corpuscular Hemoglobin 31.3 pg (25.0-34.0); Mean Corpuscular Hgb Conc 34.3 g/dL (32.0-36.0); Mean Corpuscular Volume 91.3 fL (80.0-100.0); Monocytes # (auto) 1.28 K/uL (0.11-0.59); Monocytes % (auto) 13.1 %; Neutrophils # (auto) 5.81 K/uL (1.40-6.50); Neutrophils % (auto) 59.6 %; Platelet Count 225 K/uL (130-400); RDW Coefficient of Variation 15.3 % (11.5-14.5); RDW Standard Deviation 50.9 fL (36.4-46.3); White Blood Count 9.76 K/ul (4.8-10.8)
[2023-03-03 09:00] LABS: INR 2.6 (0.9-1.1); Partial Thromboplastin Ratio 1.4; Partial Thromboplastin Time 39.6 Seconds (21.0-31.0); Prothrombin Time 26.1 Seconds (9.0-12.0)
[2023-03-03 09:08] LABS: Albumin Globulin Ratio 1.6 (0.9-2); Albumin Level 4.4 gm/dl (3.4-5.0); BUN Creatinine Ratio 13.5 (10-20); Bilirubin,Total 0.5 mg/dl (0.2-1.0); Calcium 9.1 mg/dl (8.6-10.3); Creatinine Clr Calc Pharmacy 62.3 ml/min; Est GFR (African American) 96.3 ml/min; Est GFR (Non-African American) 83.1 ml/min; Globulin 2.8 gm/dl (2.5-4.0); Total Protein 7.2 gm/dl (6.0-8.3)
[2023-03-03 09:24] LABS: Troponin I High Sensitivity 9.1 pg/ml (0-20)
[2023-03-03] MEDS ORDERED: ACETAMINOPHEN 500 MG TAB PO STA (09:37)
--- NOTE | 2023-03-03 09:46 | History & Physical Report ---
Date of Service March 03, 2023 Assessment & Plan (1) Chest pain: Plan: - Admit to tele - Trend cardiac biomarkers, initial set was negative at 9 - EKG reviewed as above - Check 2 D echo - pt last echo reviewed from Jul 2022 showing LVEF of 35 % an apical, septal, inferior, posterior, and lateral wall motion abnormality with hypokinesis to akinesis of the the segments. - Cardiology consulted - Dr. Stafford discussed the care with me - will plan to use tylenol and lidocaine as this sounds like musculoskeletal pain versus cardiac, although due to his hisotory will require overnight stay - PT/OT consulted - Fall precautions (2) S/P CABG x 5: (3) ASCVD (arteriosclerotic cardiovascular disease): (4) S/P TAVR (transcatheter aortic valve replacement): Plan: - Continue medications per home med rec including amiodarone, aspirin, atorvastatin, lisionpril and metoprolol succinate - Trend INR, 2.6 today, continue coumadin alternating doses of 2 and 4 mg. - Follows with Dr. Arango as an outpatient with cards - Does not appear to be volume overloaded - Cessation of cigarette use encouraged however pt denies nicotine patch DVT ppx: - teds, scds CODE: DNR/DNI Dispo: From home, likely to remain in the hospital x 1-2 days A total of 75 minutes were spent with greater than 50% of that time face to face with the patient, personally reviewing all current laboratories, imaging luana dies, past medication reconciliation, outpatient chart review, and discussion with specialists to collaborate care for the patient with attending. Please see attending documentation for corrections and/or additions. History of Present Illness Chief Complaint: Chest pain Primary Care Provider: Coco Garcia DO This is a 77 yo M with PMHx of chronic systolic CHF, aortocoronary bypass x 5, ischemic cardiomyopathy, s/p ICD implantation in Aug 2006, CAD, use of anticoagulant therapy, HLD, nonrheumatic aortic valve stenosis and bicuspid aortic valve s/p TAVR 2018, hemiparesis of left nondominant side as late effect of cerebral infarctions, tobacco use disorder, GERD, nocturnal hypoxemia previously prescribed supplemental O2. Last Echo was reviewed in outpatient EPIC from Jul 2022 showing LVEF of 35 % an apical, septal, inferior, posterior, and lateral wall motion abnormality with hypokinesis to akinesis of the the segments. He reports that over the weekend on Wednesday he was spraying fruit trees, trying to get rid of gypsy moth egg nests, for which she participate in this a few hours in the afternoon. He is left-handed so was reaching above his head pointing a sprayer nozzle. Later that evening he felt increasing soreness and had some left-sided chest pain which seem to improve with resting and laying down. He denies any specific shortness of breath, nausea, palpitations or lightheadedness. Throughout the past 3 days he has intermittently felt the similar pain especially with moving his left arm. His left the house overnight yesterday, so was not home when he developed worsening chest pain this morning after eating breakfast and having a cigarette. He reports that he was sitting at rest and thought that his chest pain was significant enough that he trialed 1 nitro tablet, but cannot confirm that this resolved/improved his pain. He took all of his morning medications today. EMS administered him 4 baby aspirin's. Patient smokes 10 to 14 cigarettes/day for his entire adult life, reports oc casional alcohol use, 2 beers every 6 weeks. Allergies Allergy/AdvReac Type Severity Reaction Status Date / Time No Known Allergies Allergy Verified 02/23/22 11:01 Home Medications Medication Instructions Recorded Confirmed Type aspirin 81 mg tablet,delayed 81 mg PO PM 02/23/22 03/03/23 History release lisinopril 2.5 mg tablet 2.5 mg PO DAILY 02/23/22 03/03/23 History metoprolol succinate 50 mg 50 mg PO DAILY 02/23/22 03/03/23 History tablet,extended release 24 hr (Toprol XL) nitroglycerin 0.4 mg sublingual 0.4 mg sublingual Q5M PRN Chest 02/23/22 03/03/23 History tablet Pain warfarin 4 mg tablet 4 mg PO 3XWK 02/23/22 03/03/23 History amiodarone 200 mg tablet 200 mg PO DAILY 03/03/23 03/03/23 History atorvastatin 40 mg tablet 40 mg PO DAILY 03/03/23 03/03/23 History warfarin 4 mg tablet 2 mg PO 4XWK 03/03/23 03/03/23 History Past Med/Surg History Medical History Amputation of middle finger ASCVD (arteriosclerotic cardiovascular disease) Bicuspid aortic valve CVA (cerebral vascular accident) GERD (gastroesophageal reflux disease) Heart attack High cholesterol Left knee pain Mitral regurgitation Surgical History History of tonsillectomy S/P CABG x 5 S/P fusion of sacroiliac joint S/P TAVR (transcatheter aortic valve replacement) Family History Other Diabetes Social History Smoking Status: Current every day smoker Cigarettes Per Day: 3/4 pack a day; Second Hand Exposure: No; Do You Dip or Chew Tobacco: No; Tobacco Cessation Education Requested by Patient: No Hx Alcohol Use: Yes Alcohol type: beer Hx Substance Use: No Preferred Language: Tongan Communication Ability: Effective Visual Impairment: No Limitations Hearing Ability: Normal Strike Planning Applications Required: No Beliefs That Will Affect Care: None marital status: Current Living Situation: Spouse current occupational status: retired Other Information That Helps Us Care for You: No Feels Safe at Home: Yes Safety Concerns: Feels Safe At This Time Assistive Devices: Denture - Upper, Denture - Lower and Glasses Review of Systems Review of Systems: Constitutional: No fever, sweats or chills Eyes: No diplopia, no worsening or blurred vision ENT: normal hearing, no trouble swallowing Respiratory: No cough, sputum, dyspnea at rest or on exertion Cardiovascular: As per HPI, currently No chest pain, tightness or palpitations Abdomen: No pain, nausea, vomiting, diarrhea or constipation Musculoskeletal: + tenderness with movement of the left arm above the shoulder and with palpation of the left pectoralis muscle, otherwise No joint pain, calf pain, swelling Neurologic: No weakness, numbness/tingling, or balance problems. Previous CVA in 2003 caused Left sided hemiplegia which he does still struggle with. Denies using ambulatory device for ambulation, has fallen but not recently. Psychiatric: No anxiety or depression Skin: No rash or itch Physical Exam Physical Exam: General: awake, alert, no apparent distress, + appears chronically ill Head: Normocephalic, atraumatic ENT: PERRL, EOMI, no pharyngeal exudate, mucous membranes moist Chest: + Expiratory wheeze throughout, no crackles, on room air with sats at 92%, no other adventitious breath sounds. Musculoskeletal: Pain with raising the left arm above head, external rotation of the left arm, point tenderness over left chest wall at the level of the fourth rib Cardiac: ICD in left chest wall, regular rate and rhythm, + TAVR, no JVD, normal peripheral pulses, good capillary refill, + appears euvolemic Abdominal: NABS x 4 quadrants, soft, nondistended, nontender to palpation, no rebound or guarding Extremities: Normal inspection, no peripheral edema or erythema, calfs nontender to palpation Psych: Normal mood and affect Neuro: AAO x 3, strength intact bilaterally and rated 5/5, no motor deficits, speech is clear, no peripheral sensory deficits Results & Data Results & Data Vital Signs (Past 12 Hours) Vital Signs Temp Pulse Resp BP BP Pulse Ox O2 Del Method 03/03/23 09:01 140/65 03/03/23 09:01 19 92 03/03/23 09:00 54 L 20 93 03/03/23 08:30 54 L 16 93 03/03/23 08:30 126/68 03/03/23 08:00 57 L 17 94 03/03/23 08:00 147/69 H 03/03/23 07:58 57 L 17 94 03/03/23 08:03 57 L 03/03/23 08:01 57 L 22 94 Room Air 03/03/23 07:50 57 L 22 94 Room Air 03/03/23 07:50 57 L 22 147/69 H 94 Room Air 03/03/23 07:45 16 155/85 H 03/03/23 07:45 36.6 C 60 16 96 Laboratory Results 03/03/23 03/03/23 03/03/23 07:58 07:58 07:58 WBC RBC Hgb Hct MCV MCH MCHC RDW Std Deviation RDW Coeff of Nick Plt Count MPV Immature Gran % (Auto) Neut % (Auto) Lymph % (Auto) [place] % (Auto) Eos % (Auto) Baso % (Auto) Neut # (Auto) Lymph # (Auto) [place] # (Auto) Eos # (Auto) Baso # (Auto) Immature Gran # (Auto) PT INR APTT PTT Ratio Sodium 140 Potassium 4.0 Chloride 105 Carbon Dioxide 29 Anion Gap 6 BUN 12 Creatinine 0.89 Est Cr Clr Drug Dosing 62.3 Est GFR ( Amer) 96.3 Est GFR (Non-Af Amer) 83.1 BUN/Creatinine Ratio 13.5 Glucose 83 Calcium 9.1 Total Bilirubin 0.5 AST 31 ALT 42 Alkaline Phosphatase 101 Troponin I High Sens 9.1 B-Natriuretic Peptide 120 H Total Protein 7.2 Albumin 4.4 Globulin 2.8 Albumin/Globulin Ratio 1.6 Lipase 31 SARS-CoV-2, RNA, NAAT NEGATIVE 03/03/23 03/03/23 07:58 07:58 WBC 9.76 RBC 5.40 Hgb 16.9 Hct 49.3 MCV 91.3 MCH 31.3 MCHC 34.3 RDW Std Deviation 50.9 H RDW Coeff of Nick 15.3 H Plt Count 225 MPV 11.0 Immature Gran % (Auto) 0.8 Neut % (Auto) 59.6 Lymph % (Auto) 21.4 [place] % (Auto) 13.1 Eos % (Auto) 4.0 Baso % (Auto) 1.1 Neut # (Auto) 5.81 Lymph # (Auto) 2.09 [place] # (Auto) 1.28 H Eos # (Auto) 0.39 Baso # (Auto) 0.11 Immature Gran # (Auto) 0.08 PT 26.1 H INR 2.6 H APTT 39.6 H PTT Ratio 1.4 Sodium Potassium Chloride Carbon Dioxide Anion Gap BUN Creatinine Est Cr Clr Drug Dosing Est GFR ( Amer) Est GFR (Non-Af Amer) BUN/Creatinine Ratio Glucose Calcium Total Bilirubin AST ALT Alkaline Phosphatase Troponin I High Sens B-Natriuretic Peptide Total Protein Albumin Globulin Albumin/Globulin Ratio Lipase SARS-CoV-2, RNA, NAAT Diagnostic Findings Chest X-Ray 03/03/23 07:52 XR chest 1V portable HISTORY: 77 years-old Male Chest pain, nonspecific acute left-sided chest pain COMPARISON: 12/08/2017 TECHNIQUE: AP view of the chest FINDINGS: Cardiac silhouette is enlarged. Prior median sternotomy with left subclavian pacer/AICD. Cardiac valvular prosthesis. Mild chronic interstitial coarsening of the lung bases. No pneumothorax, pleural effusion, airspace consolidation or pulmonary edema. Degenerative changes of the shoulders and spine. Chronic late ral left rib fractures. IMPRESSION: Cardiomegaly without acute process. ACT 112: Negative or not required by law. The above report was generated using voice recognition software. It may contain grammatical, syntax or spelling errors. Electronically signed by: Andrew Wu M.D. 03/03/2023 8:22 AM ECG Additional Comments: 03-MAR-2023 07:50:08 [facility]-EDSTAT ROUTINE RETRIEVAL Sinus bradycardia Non-specific intra-ventricular conduction block Inferior infarct , age undetermined T wave abnormality, consider lateral ischemia Abnormal ECG No previous ECGs available 25mm/[id number] 241CID: [id number] by: REFERRED SELF Unconfirmed Vent. rate 59 BPM MD interval 170 ms QRS duration 136 ms QT/QTc 450/445 ms Code Status & VTE Plan Code Status DNR/DNI-discussed with the patient at bedside Supervising Physician Co-Signing Physician Notes Patient was seen and examined independently. Chart reviewed. Case discussed with YASIR. Agree with assessment and plan as outlined above (1) Chest pain Chest pain type: unspecified Qualified Code(s): R07.9 - Chest pain, unspecified
[2023-03-03] MEDS ORDERED: ONDANSETRON INJ 2 MG/ML 2 ML VIAL IV PRN (11:52)
--- NOTE | 2023-03-03 13:16 | Cardiology Consultation ---
Date of Consultation March 03, 2023 Assessment & Plan (1) Chest pain: - Patient with a complex history of coronary heart disease, CABG that took place nearly 20 years ago. Most recent coronary angiography performed in part of work-up prior to TAVR in 2019 as noted. -There is definitely reproducible component of his chest discomfort suggesting that perhaps this is a presentation of acute musculoskeletal chest wall pain. Given his underlying cardiac risk factors however ongoing observation is recommended. My advice upon seeing him in the emergency room was to have him admitted to the hospital service on the telemetry unit which is taken place in the meantime. A second troponin level has since been resulted since I initially assessed him and his within normal limits. He does not examine as being volume overloaded, and his proBNP level was 120 PG per mL. Thus far work-up from cardiac perspective is reassuring. -We will proceed with ongoing observation, serial troponin levels, echocardiogram. -Proceed with treatment including acetaminophen and Lidoderm patch. (2) ASCVD (arteriosclerotic cardiovascular disease): - As noted above. Continue chronic treatment including amiodarone, aspirin, atorvastatin, lisinopril, metoprolol succinate. (3) S/P TAVR (transcatheter aortic valve replacement): - Stable echo findings July,. Will reassess. (4) CVA (cerebral vascular accident): - Patient with history of past stroke. He remains on warfarin. INR 2.6 today. Given results of work-up thus far I think it is reasonable to continue his warfarin at present unless he develops symptoms suggestive angina, new ischemic EKG changes, or elevation in troponin. Case discussed in person with Dr Holder for the purpose of coordination of care. Case discussed by phone with Beckie Gill PA-C for the purpose of coordination of care. 60 minutes were spent on direct patient care including review of previous records, performing a history and physical, reviewing hospital data, preparing this document, and coordinating with the other providers. History of Present Illness Attending Physician: Preeti Medrano MD History of Present Illness Antoine Nolasco is a 77-year-old male seen in cardiology consultation per the request of Dr. Holder of emergency medicine for the evaluation of chest discomfort. Patient was seen by the undersigned earlier today while still in the emergency department, room A3. Patient was accompanied by his daughter and her significant other. He notes that on 02/27/2023, he was performing work on his property using a blow torch device to burned away [place] Moths from some trees. He was utilizing his left arm for this as he is left-handed. He noted later in the day having 7/10 intensity left-sided chest discomfort. This had been improved for a few days, and this morning after having a breakfast of donuts and smoke a cigarette he noted onset of severe 10/10 chest discomfort. He took a nitroglycerin and he felt like that perhaps helped things to some degree. At the time of my arrival in the emergency room he described ongoing 2/10 in tensity subjective discomfort, but appears very comfortable. EKG performed on arrival at 750 this morning revealed sinus bradycardia 59 bpm with IVCD and associated poor R wave progression, age-indeterminate inferior infarction pattern. Compared to the most recent outpatient EKG within the [facility] system dating back to June,, the inferior infarct pattern is chronic. HS troponin was negative x 2 with measurements of 9.1 pg/ml and 7.9 pg/ ml at 7:58 AM and 12:10 PM. The patient has a a history of complex cardiac disease and typically follows with Dr. Arango of our practice. Problem List From Outpatient Cardiology Chart: 1.Severe multivessel coronary artery disease, ischemic cardiomyopathy. 1.Myocardial infarction in January of 2004. 2.March 19, 2004 coronary artery bypass grafting times four, left internal mammary artery to the left anterior descending artery and three separate reversed autogenous saphenous vein grafts harvested endoscopically to bypass the diagonal, obtuse marginal and posterolateral branch of the right coronary. 2.Severe mitral regurgitation status post mitral valve repair using Medtronic Future band ring, size #28 mm. 3.Postoperative CVA 4.Status post August 2006 ICD implantation, Medtronic GEM III VR [id number] (Serial Number [id number]). Sprint Ringling lead, single chamber device (RV). 5.Status post August 20, 2015 generator exchange, [id number] 6.August 24, [place] [place] severe disease of [place] artery including 100% stenosis of mid RCA and 100% stenosis of mid LCx. Mild luminal irregularity of LAD. SVG-D-OM2 (Y graft) and SVG-RPL graft patent. Atretic OWUSU-LAD. No ischemic territory. 7.Bicuspid aortic valve - severe aortic valve stenosis status post 08/24/2019 TAVR via right carotid [place], 26 Stuart Veronica S3 valve 8.Chronic systolic congestive heart failure, Class III 9.Nonsustained and sustained ventricular tachycardia, symptomatic. Prescribed amiodarone June 05, 2022 10.Hypertension 11.Hyperlipidemia. LDL cholesterol goal less than 70 mg/dL 12.Gastroesophageal reflux disease. 13.Chronic tobacco abuse., Continues to smoke 3/4 packs of cigarettes per day, 03/03/2023 14.Nocturnal hypoxemia, previously prescribed supplemental oxygen, discontinued by patient Allergies Allergy/AdvReac Type Severity Reaction Status Date / Time No Known Allergies Allergy Verified 02/23/22 11:01 Home Medications Medication Instructions Recorded Confirmed Type aspirin 81 mg tablet,delayed 81 mg PO PM 02/23/22 03/03/23 History release lisinopril 2.5 mg tablet 2.5 mg PO DAILY 02/23/22 03/03/23 History metoprolol succinate 50 mg 50 mg PO DAILY 02/23/22 03/03/23 History tablet,extended release 24 hr (Toprol XL) nitroglycerin 0.4 mg sublingual 0.4 mg sublingual Q5M PRN Chest 02/23/22 03/03/23 History tablet Pain warfarin 4 mg tablet 4 mg PO 3XWK 02/23/22 03/03/23 History amiodarone 200 mg tablet 200 mg PO DAILY 03/03/23 03/03/23 History atorvastatin 40 mg tablet 40 mg PO DAILY 03/03/23 03/03/23 History warfarin 4 mg tablet 2 mg PO 4XWK 03/03/23 03/03/23 History Patient History Medical History Amputation of middle finger ASCVD (arteriosclerotic cardiovascular disease) Bicuspid aortic valve CVA (cerebral vascular accident) GERD (gastroesophageal reflux disease) Heart attack High cholesterol Left knee pain Mitral regurgitation Surgical History History of tonsillectomy S/P CABG x 5 S/P fusion of sacroiliac joint S/P TAVR (transcatheter aortic valve replacement) Family History Other Diabetes Social History Smoking Status: Current every day smoker Cigarettes Per Day: 3/4 pack a day; Second Hand Exposure: No; Do You Dip or Chew Tobacco: No; Tobacco Cessation Education Requested by Patient: No Hx Alcohol Use: Yes Alcohol type: beer Hx Substance Use: No Preferred Language: Sammarinese Communication Ability: Effective Visual Impairment: No Limitations Hearing Ability: Normal 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 Beliefs That Will Affect Care: None marital status: Current Living Situation: Spouse current occupational status: retired Other Information That Helps Us Care for You: No Feels Safe at Home: Yes Safety Concerns: Feels Safe At This Time Assistive Devices: Denture - Upper, Denture - Lower and Glasses Review of Systems Review of Systems: All systems reviewed & are unremarkable except as noted in HPI & below Physical Exam Constitutional: WD/WN, vitals as above Respiratory: no respiratory distress and no labored breathing Auscultation: + wheezes (Mild apical wheezing, coarse breath sounds bilaterally) Cardiovascular: Rate/Rhythm: regular rate and regular rhythm Heart Sounds: no murmur Vessels: no JVD Extremities: no edema Gastrointestinal (Abdomen): normal bowel sounds, soft, nontender, no hepatosplenomegaly Musculoskeletal: Chest discomfort was reproduced with focal palpation in the left sternal costal margin. Also, when patient utilized his arms to pull himself forward to allow me to examine his lungs, left chest/left shoulder discomfort was reproduced. Neurologic: No focal neurologic deficit fact on limited exam, conversant. No dysarthria. Psychiatric: A+Ox3, euthymic affect Results & Data Vital Signs (Past 12 Hours) Vital Signs Temp Pulse Pulse Resp BP BP Pulse Ox 03/03/23 11:45 03/03/23 11:45 36.9 C 51 L 18 149/86 H 96 03/03/23 10:00 54 L 22 92 03/03/23 09:31 54 L 17 92 03/03/23 09:31 128/73 03/03/23 09:30 52 L 21 93 03/03/23 09:01 140/65 03/03/23 09:01 19 92 03/03/23 09:00 54 L 20 93 03/03/23 08:30 54 L 16 93 03/03/23 08:30 126/68 04/12/23 08:00 57 L 17 94 03/03/23 08:00 147/69 H 03/03/23 07:58 57 L 17 94 03/03/23 08:03 57 L 03/03/23 08:01 57 L 22 94 03/03/23 07:50 57 L 22 94 03/03/23 07:50 57 L 22 147/69 H 94 03/03/23 07:45 16 155/85 H 03/03/23 07:45 36.6 C 60 16 96 O2 Del Method 03/03/23 11:45 Room Air 03/03/23 11:45 Room Air 03/03/23 10:00 03/03/23 09:31 03/03/23 09:31 03/03/23 09:30 03/03/23 09:01 03/03/23 09:01 03/03/23 09:00 03/03/23 08:30 03/03/23 08:30 03/03/23 08:00 03/03/23 08:00 03/03/23 07:58 03/03/23 08:03 03/03/23 08:01 Room Air 03/03/23 07:50 Room Air 03/03/23 07:50 Room Air 03/03/23 07:45 03/03/23 07:45 Diagnostic Findings Summary of outpatient echocardiogram performed 08/03/2022: There is a large sized inferior, inferolateral, lateral wall motion abnormality with hypokinesis to akinesis of the segments, calculated LVEF moderately reduced 35% Status post TAVR with VERONICA prosthesis with mild intravalvular aortic regurgitation, no prosthetic stenosis Pharmacologic nuclear stress test performed 08/03/2022: Images reviewed independently: Large sized fixed inferior, inferolateral, anterolateral perfusion defect of severe intensity consistent with scar in the right coronary artery versus circumflex territory. No superimposed ischemia. LVEF 29% (1) Chest pain Chest pain type: unspecified Qualified Code(s): R07.9 - Chest pain, un specified
[2023-03-03] MEDS: LIDOCAINE 5% 1 PATCH TD SCH (14:32)
[2023-03-03] MEDS: ACETAMINOPHEN 325 MG TAB PO SCH ×2 (15:25→22:42)
[2023-03-03] MEDS ORDERED: WARFARIN SOD 4 MG TAB PO SCH (16:00)
[2023-03-03] MEDS ORDERED: ASPIRIN 81 MG ECTAB PO SCH (21:00)
[2023-03-04 06:47] LABS: Hematocrit (blood only) 44.6 % (42.0-52.0); Hemoglobin 15.3 g/dl (14.0-18.0); Mean Corpuscular Hemoglobin 31.3 pg (25.0-34.0); Mean Corpuscular Hgb Conc 34.3 g/dL (32.0-36.0); Mean Corpuscular Volume 91.2 fL (80.0-100.0); Mean Platelet Volume 10.8 fL (9.4-12.4); Platelet Count 178 K/uL (130-400); RDW Standard Deviation 50.3 fL (36.4-46.3); Red Blood Count 4.89 M/uL (4.70-6.10); White Blood Count 8.93 K/ul (4.8-10.8)
[2023-03-04 07:16] LABS: Albumin Level 3.7 gm/dl (3.4-5.0); BUN Creatinine Ratio 19.2 (10-20); Bilirubin Direct 0.1 mg/dl (0-0.2); Bilirubin,Total 0.5 mg/dl (0.2-1.0); Calcium 8.7 mg/dl (8.6-10.3); Chol HDL Ratio 3.6 (0-5); Creatinine Clr Calc Pharmacy 72.1 ml/min; Est GFR (African American) 101.6 ml/min; Est GFR (Non-African American) 87.7 ml/min; Magnesium 2.1 mg/dl (1.7-2.4); Potassium 3.9 mmol/L (3.5-5.1)
[2023-03-04 07:27] LABS: INR 2.7 (0.9-1.1); Prothrombin Time 27.7 Seconds (9.0-12.0)
[2023-03-04] MEDS: LIDOCAINE 5% 1 PATCH TD SCH (08:03)
[2023-03-04] MEDS: ACETAMINOPHEN 325 MG TAB PO SCH (08:04)
[2023-03-04] MEDS ORDERED: lisinopril 2.5 MG TAB PO SCH (09:00)
[2023-03-04] MEDS ORDERED: METOPROLOL SUCC 50MG EXT REL TAB PO SCH (09:00)
[2023-03-04] MEDS ORDERED: AMIODARONE 200 MG TAB PO SCH (09:00)
[2023-03-04] MEDS ORDERED: ATORVASTATIN 40 MG TAB PO SCH (09:00)
[2023-03-04 09:42] LABS: Estimated Average Glucose 123 mg/dl; Hemoglobin A1C 5.9 % (4.5-5.6)
--- NOTE | 2023-03-04 11:36 | Cardiology Progress Note ---
Date of Service March 04, 2023 Assessment & Plan (1) Chest pain: (2) ASCVD (arteriosclerotic cardiovascular disease): (3) S/P TAVR (transcatheter aortic valve replacement): Plan: - 77-year-old male with longstanding history of coronary heart disease, prior remote CABG 19 to 20 years ago, mitral valve repair, and transcatheter aortic valve implantation (2019). He has an ischemic cardiomyopathy with an inferior, inferolateral scar based on previous testing and moderate to severe left ventricular systolic dysfunction. Previous implantation of a single-chamber AICD. -Presentation consistent with chest wall pain. Discomfort improved having received Tylenol and a Lidoderm patch. High-sensitivity troponin negative x3. Presenting discomfort is once again reproducible today on palpation of the costosternal margin. Of note chest x-ray revealed mild chronic interstitial coarsening of the lung bases without airspace consolidation or pulmonary edema. Chronic lateral left rib fractures noted. -He is on chronic warfarin therapy with a past history of stroke, INR 2.7. -He is on chronic amiodarone therapy due to a history of ventricular tachycardia, and has known COPD and is a continued cigarette smoker. -- Repeat EKG performed today 03/04/2023 at 11:32 AM reveals stable findings of sinus bradycardia at 57 bpm with nonspecific intraventricular conduction delay. T wave abnormality noted in the high lateral leads I and aVL unchanged comparedto 03/03/23, and slightly more prominent in the lateral precordial leads V4-V6 with nonspecific T wave flattening, but not felt to be significantly changed clinically. -Patient stable from a cardiac perspective for discharge on his prior to hospital cardiac medications including aspirin, atorvastatin, lisinopril, metoprolol succinate, warfarin, amiodarone-at current doses. -At present, will continue prior to hospital treatment amiodarone without that given his history of ventricular tachycardia, benefits of treatment with this agent outweigh the risks. Smoking cessation recommended. -For his chest wall pain, recommend use of acetaminophen with close follow-up with the anticoagulation clinic to ensure stable INR given warfarin use, and Lidoderm patch. Admission and Anticipated Discharge Date Admission Date: March 03, 2023 Subjective Patient seen and cardiology follow-up. He states that he rested well overnight last night. Has occasional left chest pain with activity such as movement in bed and coughing, consistent with musculoskeletal chest wall pain. The discomfort is significantly improved compared to the 10/10 intensity discomfort that prompted him to come to the hospital yesterday morning. Telemetry reveals sinus rhythm with an IVCD at 60 bpm. Telemetry overnight revealed sinus bradycardia in the 50s. Review of Systems Review of Systems: All systems reviewed & are unremarkable except as noted in HPI & below Physical Exam Constitutional: WD/WN, vitals as above Respiratory: no respiratory distress and no labored breathing Auscultation: + wheezes (Mild biapical wheezing, coarse breath sounds) Cardiovascular: Rate/Rhythm: regular rate and regular rhythm Vessels: no JVD Extremities: no edema Gastrointestinal (Abdomen): normal bowel sounds, soft, nontender, no hepatosplenomegaly Neurologic: PERRL, EOMI, accommodation nl, no face palsy, no dysarthria Results & Data Vital Signs (Past 12 Hours) Vital Signs Temp Pulse Pulse Resp BP BP Pulse Ox 03/04/23 11:24 36.5 C 60 16 101/70 93 03/04/23 10:23 66 03/04/23 08:25 03/04/23 08:00 03/04/23 07:50 36.4 C L 60 16 116/77 93 03/04/23 02:54 36.6 C 57 L 16 104/54 L 90 Pulse Ox O2 Del Method O2 Del Method 03/04/23 11:24 Room Air 03/04/23 10:23 03/04/23 08:25 Room Air 03/04/23 08:00 93 Room Air 03/04/23 07:50 Room Air 03/04/23 02:54 Room Air Laboratory Results Cardiac Enzymes 03/03/23 03/03/23 03/04/23 Range/Units 12:10 21:13 06:04 AST 22 (13-39) U/L Troponin I High Sens 7.9 9.1 (0-20) pg/ml Coagulation 03/04/23 Range/Units 06:04 PT 27.7 H (9.0-12.0) Seconds Lipids 03/04/23 Range/Units 06:04 Triglycerides 89 (0-150) mg/dl Cholesterol 139 (0-200) mg/dl HDL Cholesterol 39 mg/dl Cholesterol/HDL Ratio 3.6 (0-5) CBC 03/04/23 Range/Units 06:04 WBC 8.93 (4.8-10.8) K/ul RBC 4.89 (4.70-6.10) M/uL Hgb 15.3 (14.0-18.0) g/dl Hct 44.6 (42.0-52.0) % Plt Count 178 (130-400) K/uL Comprehensive Metabolic Panel 03/04/23 Range/Units 06:04 Sodium 139 (136-145) mmol/L Potassium 3.9 (3.5-5.1) mmol/L Chloride 107 (98-107) mmol/L Carbon Dioxide 25 (21-32) mmol/L BUN 15 (6-23) mg/dl Creatinine 0.78 (0.6-1.4) mg/dl Glucose 131 H (70-99(Fasting)) mg/dl Calcium 8.7 (8.6-10.3) mg/dl Direct Bilirubin 0.1 (0-0.2) mg/dl AST 22 (13-39) U/L ALT 33 (7-52) U/L Alkaline Phosphatase 83 (34-104) U/L Total Protein 6.0 (6.0-8.3) gm/dl Albumin 3.7 (3.4-5.0) gm/dl Diagnostic Findings Echocardiogram performed yesterday and interpreted independently: Mild concentric left ventricular hypertrophy present in the segments with normal wall motion. Left ventricular systolic function is moderately reduced with qualitative ejection fraction in the range of 30-35%. There is a large sized inferior, inferolateral, anterolateral wall motion abnormality with akinesis of the segments. Left atrium is severely dilated There is evidence of a transcatheter aortic valve implantation with mild prosthetic valve regurgitation. No prosthetic stenosis. There is a mitral valve annuloplasty ring without evidence of significant mitral regurgitation or mitral valve stenosis. Compared to the report of the outpatient study performed , there has been no significant interval change. (1) Chest pain Chest pain type: unspecified Qualified Code(s): R07.9 - Chest pain, unspecified
--- NOTE | 2023-03-04 12:04 | Hospitalist Progress Note ---
Date of Service March 04, 2023 Assessment & Plan (1) Chest pain: Plan: -Secondary to musculoskeletal pain - Trend cardiac biomarkers, initial set was negative at 9-negative troponins and negative EKG - Check 2 D echo - pt last echo reviewed from Jul 2022 showing LVEF of 35 % an apical, septal, inferior, posterior, and lateral wall motion abnormality with hypokinesis to akinesis of the the segments. -Repeat echocardiogram reviewed-showed EF of 30 to 35%, large inferior, inferolateral, anterolateral wall motion abnormality with akinesis of the segments, left atrium is severely dilated. Status post transcatheter aortic valve implantation with an Stuart UMESH prosthesis - Cardiology consulted -appreciate input and recommendation -He has been ambulating in the hallway without any difficulties and says that PT saw him already and wants to go home -Yeny asymptomatic to be discharged (2) S/P CABG x 5: Plan: The chest pain is seems to be noncardiac (3) ASCVD (arteriosclerotic cardiovascular disease): (4) S/P TAVR (transcatheter aortic valve replacement): Plan: - Continue medications per home med rec including amiodarone, aspirin, atorvastatin, lisionpril and metoprolol succinate - Trend INR, 2.6 today, continue coumadin alternating doses of 2 and 4 mg. - Follows with Dr. Arango as an outpatient with cards - Does not appear to be volume overloaded - Cessation of cigarette use encouraged however pt denies nicotine patch -Echo is reviewed Ongoing smoking He has cough and he understands the risk of smoking but will not quit smoking DVT ppx: - teds, scds CODE: DNR/DNI Dispo: From home, likely to remain in the hospital x 1-2 days Will be discharged home this afternoon Admission and Anticipated Discharge Date Admission Date: March 03, 2023 Subjective 03/04/2023 The patient was seen and examined in telemetry unit He complains to have left upper chest pain with movements of the left upper extremity He has been ruled out for any ACS and has been evaluated by check examiner as well Denies any other symptoms and he will be discharged this afternoon Review of Systems Review of Systems: All systems reviewed and are unremarkable except as noted below Cardiovascular: Additional Comments: Left anterior upper chest wall pain with movement of the left upper extremity Physical Exam Physical Exam: Lying in bed comfortably Constitutional: well developed, well nourished and + obese; not ill appearing Eyes: PERRL, conjunctivae normal, anicteric sclerae ENMT: external ear and nose normal, oropharynx normal Neck: trachea midline, no thyromegaly Respiratory: no respiratory distress Auscultation: + diminished lung sounds and + crackles (Bibasilar crackles) Cardiovascular: Rate/Rhythm: regular rate and regular rhythm; not tachycardic Heart Sounds: normal S1, normal S2 and + murmur Extremities: + edema (Trace edema bilaterally) Gastrointestinal (Abdomen): Inspection/Auscultation: normal bowel sounds; abdomen not distended Percussion/Palpation: abdomen soft; abdomen nontender Musculoskeletal: No acute arthritis involving any of the joints Neurologic: normal touch/pain/proprioception and moves all extremities; no focal motor deficits Psychiatric: A+Ox3, euthymic affect Lymphatic: no cervical or axillary lymphadenopathy Results & Data Results & Data Vital Signs (Past 12 Hours) Vital Signs Temp Pulse Pulse Resp BP BP Pulse Ox 03/04/23 11:24 36.5 C 60 16 101/70 93 03/04/23 10:23 66 03/04/23 08:25 03/04/23 08:00 03/04/23 07:50 36.4 C L 60 16 116/77 93 03/04/23 02:54 36.6 C 57 L 16 104/54 L 90 Pulse Ox O2 Del Method O2 Del Method 03/04/23 11:24 Room Air 03/04/23 10:23 03/04/23 08:25 Room Air 03/04/23 08:00 93 Room Air 03/04/23 07:50 Room Air 03/04/23 02:54 Room Air Laboratory Results Short CBC 03/04/23 Range/Units 06:04 WBC 8.93 (4.8-10.8) K/ul Hgb 15.3 (14.0-18.0) g/dl Hct 44.6 (42.0-52.0) % Plt Count 178 (130-400) K/uL BMP 03/04/23 06:04 Sodium 139 Potassium 3.9 Chloride 107 Carbon Dioxide 25 BUN 15 Creatinine 0.78 Glucose 131 H Calcium 8.7 Liver Function 03/04/23 Range/Units 06:04 Total Bilirubin 0.5 (0.2-1.0) mg/dl Direct Bilirubin 0.1 (0-0.2) mg/dl AST 22 (13-39) U/L ALT 33 (7-52) U/L Alkaline Phosphatase 83 (34-104) U/L Albumin 3.7 (3.4-5.0) gm/dl Medications Administered Current Inpatient Medications Acetaminophen (Acetaminophen 325 Mg Tab) 650 mg PO Q8H [facility] Stop: 04/02/23 15:59 Last Admin: 03/04/23 08:04 Dose: 650 mg Amiodarone HCl (Amiodarone 200 Mg Tab) 200 mg PO DAILY [facility] Stop: 04/03/23 08:59 Last Admin: 03/04/23 08:02 Dose: 200 mg Aspirin (Aspirin 81 Mg Ectab) 81 mg PO PM [facility] Stop: 04/02/23 20:59 Last Admin: 03/03/23 20:01 Dose: 81 mg Atorvastatin Calcium (Atorvastatin 40 Mg Tab) 40 mg PO DAILY [facility] Stop: 04/03/23 08:59 Last Admin: 03/04/23 08:02 Dose: 40 mg Lidocaine (Lidocaine 5% 1 Patch) 1 patch TD QAM [facility] Stop: 04/02/23 10:29 Last Admin: 03/04/23 08:03 Dose: 1 patch Lisinopril (Lisinopril 2.5 Mg Tab) 2.5 mg PO DAILY [facility] Stop: 04/03/23 08:59 Last Admin: 03/04/23 08:02 Dose: 2.5 mg Metoprolol Succinate (Metoprolol Succ 50mg Ext Rel Tab) 50 mg PO DAILY [facility] Stop: 04/03/23 08:59 Last Admin: 03/04/23 08:02 Dose: 50 mg Miscellaneous (Remove Lidoderm Patch) 1 each N/A DAILY@2100 [facility] Stop: 04/02/23 20:59 Last Admin: 03/03/23 20:01 Dose: 1 each Ondansetron HCl (Ondansetron Inj 2 Mg/Ml 2 Ml Vial) 4 mg IV Q4H PRN PRN Reason: Nausea And Vomiting Stop: 04/02/23 11:51 Warfarin Sodium (Warfarin Sod 2 Mg Tab) 2 mg PO SuTuThSa@1600 [facility] Stop: 04/03/23 15:59 Warfarin Sodium (Warfarin Sod 4 Mg Tab) 4 mg PO MoWeFr@1600 [facility] Stop: 04/02/23 15:59 Last Admin: 03/03/23 15:25 Dose: 4 mg (1) Chest pain Chest pain type: unspecified Qualified Code(s): R07.9 - Chest pain, unspecified
--- NOTE | 2023-03-04 13:40 | Communication Note ---
Date of Service: March 04, 2023 By CMS guidelines, a determination that the admission or continued stay is not medically necessary has been made by a member of the UR committee and a phy sician for this hospital stay, therefore a Code 44 will be completed and the Inpatient admission will be changed to outpatient. Luis Rodas MD Member, Utilization Review Committee
[2023-03-04] MEDS ORDERED: WARFARIN SOD 2 MG TAB PO SCH (16:00)
--- NOTE | 2023-03-05 05:28 | Electrocardiogram Report ---
Test Reason : Blood Pressure : / mmHG Vent. Rate : 059 BPM Atrial Rate : 059 BPM P-R Int : 170 ms QRS Dur : 136 ms QT Int : 450 ms P-R-T Axes : 054 -14 112 degrees QTc Int : 445 ms Sinus bradycardia Non-specific intra-ventricular conduction block Inferior infarct , age undetermined T wave abnormality, consider lateral ischemia Abnormal ECG No previous ECGs available Confirmed by Gregg Hartman ([id number]) on 03/05/2023 5:27:59 AM Referred By: REFERRED SELF Confirmed By:Gregg Hartman
--- NOTE | 2023-03-05 07:55 | Discharge Summary ---
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 Last Echo was reviewed in outpatient EPIC from Jul 2022 showing LVEF of 35 % an apical, septal, inferior, posterior, and lateral wall motion abnormality with hypokinesis to akinesis of the the segments. He reports that over the weekend on Wednesday he was spraying fruit trees, trying to get rid of gypsy moth egg nests, for which she participate in this a few hours in the afternoon. He is left-handed so was reaching above his head pointing a sprayer nozzle. Later that evening he felt increasing soreness and had some left-sided chest pain which seem to improve with resting and laying do wn. He denies any specific shortness of breath, nausea, palpitations or lightheadedness. Throughout the past 3 days he has intermittently felt the similar pain especially with moving his left arm. His left the house overnight yesterday, so was not home when he developed worsening chest pain this morning after eating breakfast and having a cigarette. He reports that he was sitting at rest and thought that his chest pain was significant enough that he trialed 1 nitro tablet, but cannot confirm that this resolved/improved his pain. He took all of his morning medications today. EMS administered him 4 baby aspirin's. Patient smokes 10 to 14 cigarettes/day for his entire adult life, reports occasional alcohol use, 2 beers every 6 weeks. Admission Exam Per Admitting Provider Physical Exam: General: awake, alert, no apparent distress, + appears chronically ill Head: Normocephalic, atraumatic ENT: PERRL, EOMI, no pharyngeal exudate, mucous membranes moist Chest: + Expiratory wheeze throughout, no crackles, on room air with sats at 92%, no other adventitious breath sounds. Musculoskeletal: Pain with raising the left arm above head, external rotation of the left arm, point tenderness over left chest wall at the level of the fourth rib Cardiac: ICD in left chest wall, regular rate and rhythm, + TAVR, no JVD, normal peripheral pulses, good capillary refill, + appears euvolemic Abdominal: NABS x 4 quadrants, soft, nondistended, nontender to palpation, no rebound or guarding Extremities: Normal inspection, no peripheral edema or erythema, calfs nontender to palpation Psych: Normal mood and affect Neuro: AAO x 3, strength intact bilaterally and rated 5/5, no motor deficits, speech is clear, no peripheral sensory deficits Principal Diagnosis Musculoskeletal chest pain, CAD status post CABG x5, status post TAVR, ischemic cardiomyopathy with EF of 30%-to 35% Discharge Exam Lying in bed comfortably Constitutional well developed, well nourished and + obese; not ill appearing Eyes PERRL, conjunctivae normal, anicteric sclerae ENMT external ear and nose normal, oropharynx normal Neck trachea midline, no thyromegaly Respiratory no respiratory distress Auscultation: + diminished lung sounds and + crackles (Bibasilar crackles) Cardiovascular Rate/Rhythm: regular rate and regular rhythm; not tachycardic Heart Sounds: normal S1, normal S2 and + murmur Extremities: + edema (Trace edema bilaterally) Gastrointestinal (Abdomen) Inspection/Auscultation: normal bowel sounds; abdomen not distended Percussion/Palpation: abdomen soft; abdomen nontender Neurologic normal touch/pain/proprioception and moves all extremities; no focal motor deficits Psychiatric A+Ox3, euthymic affect Lymphatic no cervical or axillary lymphadenopathy Discharge Data Allergies Allergy/AdvReac Type Severity Reaction Status Date / Time No Known Allergies Allergy Verified 02/23/22 11:01 Consultations 03/03/23 08:52 Consult Cardiology Stat 03/03/23 09:16 ED Decision to Admit Stat 03/03/23 11:52 Consult Cardiology Routine Hospital Course (1) Chest pain: -Secondary to musculoskeletal pain - Trend cardiac biomarkers, initial set was negative at 9-negative troponins and negative EKG - Check 2 D echo - pt last echo reviewed from Jul 2022 showing LVEF of 35 % an apical, septal, inferior, posterior, and lateral wall motion abnormality with hypokinesis to akinesis of the the segments. -Repeat echocardiogram reviewed-showed EF of 30 to 35%, large inferior, inferolateral, anterolateral wall motion abnormality with akinesis of the segments, left atrium is severely dilated. Status post transcatheter aortic valve implantation with an Stuart UMESH prosthesis - Cardiology consulted -appreciate input and recommendation -He has been ambulating in the hallway without any difficulties and says that PT saw him already and wants to go home -Yeny asymptomatic to be discharged (2) S/P CABG x 5: The chest pain is seems to be noncardiac (3) ASCVD (arteriosclerotic cardiovascular disease): (4) S/P TAVR (transcatheter aortic valve replacement): - Continue medications per home med rec including amiodarone, aspirin, atorvast atin, lisionpril and metoprolol succinate - Trend INR, 2.6 today, continue coumadin alternating doses of 2 and 4 mg. - Follows with Dr. Arango as an outpatient with cards - Does not appear to be volume overloaded - Cessation of cigarette use encouraged however pt denies nicotine patch -Echo is reviewed Ongoing smoking He has cough and he understands the risk of smoking but will not quit smoking DVT ppx: - teds, scds CODE: DNR/DNI Dispo: From home, likely to remain in the hospital x 1-2 days Will be discharged home this afternoon Total Time Total Time Spent Total Time Spent (In Minutes): 35 minutes Discharge Plan Discharge Items Patient Disposition: Home - Self-Care Reason For Visit: CHEST PAIN Discharge Diagnosis: Musculoskeletal chest pain, CAD status post CABG x5, status post TAVR, ischemic cardiomyopathy with EF of 30%-to 35% Condition on Discharge: Fair Activity: Resume your previous activity Non-emergency contact: Primary Care Provider Call non-emergency contact if: you have any medication questions and your symptoms worsen Follow-up/Referrals: Coco Garcia DO [Primary Care Provider] - (Date & Time 03/11/2023 3:20 PM Provider Coco Garcia DO Department [facility] [address], [place] ) Diet: Heart Healthy Addtl Attending Provider Instructions: Please take precautions to avoid fall Take your medications as advised Please give appointment with your healthcare providers Pending Studies at Discharge: No Stand-Alone Forms: My [employer], Smoking Cessation Medications and DC Order Prescriptions: New lidocaine 5 % Adhesive Patch,Medicated 1 patch transdermal QAM 30 Days Qty: 30 0RF Continued aspirin 81 mg tablet,delayed release (DR/EC) 81 mg PO PM lisinopril 2.5 mg tablet 2.5 mg PO DAILY metoprolol succinate [Toprol XL] 50 mg tablet extended release 24 hr 50 mg PO DAILY warfarin 4 mg tablet 4 mg PO [id number] Rx Instructions: Take 1 tablet (4 mg) by mouth every Wednesday, Wednesday, and Wednesday. Take (1/2 tab) 2 mg all other days; Wednesday, , Wednesday, and Wednesday. nitroglycerin 0.4 mg tablet, sublingual 0.4 mg sublingual Q5M PRN (Reason: Chest Pain) Rx Instructions: do not exceed 3 doses per episode atorvastatin 40 mg tablet 40 mg PO DAILY amiodarone 200 mg tablet 200 mg PO DAILY warfarin 4 mg tablet 2 mg PO [id number] Rx Instructions: Take (1/2 tab) 2 mg four times weekly on Wednesday, , Wednesday, and Wednesday. (Take 1 tablet (4 mg) by mouth alll other days;Wednesday, Wednesday, and Wednesday.) Discharge Orders: Discharge Order- CHF (Routine); Ordered 03/04/23 Ordered By: Jeffy Calabrese Admission Data Admit Date/Time: 03/03/23 09:37 Attending Provider: Jeffy Calabrese Admit Provider: Preeti Medrano Primary Care Provider: Coco Garcia Other Providers: Terry Stafford Thanh-Thi Other Interventions: Discharge Summary Assessment (RN) Last Done: 03/04/23 11:57
--- NOTE | 2023-03-05 22:12 | Electrocardiogram Report ---
Test Reason : Blood Pressure : / mmHG Vent. Rate : 057 BPM Atrial Rate : 057 BPM P-R Int : 170 ms QRS Dur : 144 ms QT Int : 488 ms P-R-T Axes : 056 008 113 degrees QTc Int : 474 ms Sinus bradycardia Non-specific intra-ventricular conduction block T wave abnormality, consider lateral ischemia Abnormal ECG When compared with ECG of 03-MAR-2023 07:50, Criteria for Inferior infarct are no longer Present Confirmed by Gregg Hartman ([id number]) on 03/05/2023 10:12:37 PM Referred By: REFERRED SELF Confirmed By:Gregg Hartman
== END 2023-03-04 14:03 | disposition home or self-care (01) | DRG 313 ==
LOC: ED 07:45 → 2S 09:37 → OBSVTOIN 09:37 → INTOOBSV 09:37 → SUATTDRO 09:37 → 2S 11:04